=== PATIENT | female | born 1970 | race Caucasian/White ===

== ENCOUNTER 2018-09-28 08:00 | Outpatient (CLI) | payer BC, OTHER | END 2018-09-28 08:01 | disposition home or self-care (01) | LOC: LAB.WCP 08:00 | PROVIDERS: ATTEND Physician Assistant Medical | DX: E03.9 Hypothyroidism, unspecified (principal) | CPT/HCPCS: 36415; 84443 ==

== ENCOUNTER 2018-11-04 09:55 | Outpatient (CLI) | payer OTHER ==
--- NOTE | 2018-11-05 15:31 | MRI Report ---
Reason: BACK PAIN Procedure Date: 11/04/2018 Accession Number: [id number] / [id number] Procedure: MRI - Lumbar Spine W/O CPT Code: FULL RESULT: EXAM: MRI LUMBAR SPINE WITHOUT CONTRAST EXAM DATE: 11/04/2018 10:15 AM. CLINICAL HISTORY: Low back pain. History of surgery 2 years ago. COMPARISON: None. TECHNIQUE: Multiplanar, multisequence T1-weighted and fluid-sensitive sequences of the lumbar spine from T12 to S1 without contrast. Other: None. FINDINGS: Spinal Canal: The conus terminates at L1. The conus medullaris and cauda equina are unremarkable. Alignment: There is reversal of the lumbar lordosis. There is a 5 mm grade 1 retrolisthesis at L4-L5. Bone Marrow: There are 4 [id number] vertebra. There is partial sacralization of L5. The last visible disk is designated L5-S1. There is focal hypertrophy of the anterior aspect of the inferior L2 endplate with adjacent hypoplasia of the anterior aspect of the superior endplate of L3. No acute fracture. Disk Levels/Facets: T12-L1: Unremarkable. L1-L2: Unremarkable. L2-L3: There is disk desiccation and loss of disk height. Canal and foramina are patent. L3-L4: There is a broad-based posterior disk bulge with a left paracentral disk protrusion and evidence of a prior left laminotomy. The findings cause mild canal narrowing. The disk protrusion contacts and posteriorly displaces the left L4 nerve root within the neural foramen. There is mild right and moderate left foraminal narrowing. The disk protrusion extends into the neural foramen, superiorly displacing the L3 nerve root. L4-L5: There is a midline annular tear which combines with the retrolisthesis and a broad-based posterior disk bulge to cause mild canal narrowing. There is a left hemilaminectomy defect. There is moderate right and severe left foraminal narrowing. On the left facet joint osteophytes compress the L4 nerve root against the superior pedicle. L5-S1: Partial sacralization of L5. The canal and foramina are patent. Musculature: Normal. No edema or fatty atrophy. Other: The partially visualized retroperitoneum is unremarkable. IMPRESSION: 1. 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 2. 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 3. Reversal of the lumbar lordosis. 4. L3-L4: Left paracentral disk protrusion with a prior left laminotomy. Mild canal narrowing. The protrusion posteriorly displaces the left L4 nerve root in the lateral recess. There is moderate left foraminal narrowing. The disk protrusion extends into the neural foramen and superiorly displaces the L3 nerve root. 5. L4-L5: Prior left hemilaminectomy. Mild canal narrowing. Moderate right and severe left foraminal narrowing. The left L4 nerve root is compressed against the superior pedicle. Comment: The following findings are so common in adults without low back pain that while we report their presence, they must be interpreted with caution and in the context of the clinical situation. (Reference Gissellevik et al, Spine 2001) Prevalence of findings in patients without low back pain: Disk degeneration (any evidence): 92% Disk desiccation/T2 signal loss: 83% Disk height loss: 56% Disk bulge: 64% Disk protrusion: 32% Annular tear/high intensity zone: 38% RADIA
== END 2018-11-04 09:56 | disposition home or self-care (01) ==
LOC: DI 09:55
PROVIDERS: ATTEND Family Medicine
DX: M51.26 Other intervertebral disc displacement, lumbar region (principal); M51.36 Other intervertebral disc degeneration, lumbar region; M48.061 Spinal stenosis, lumbar region without neurogenic claudication
CPT/HCPCS: 72148

== ENCOUNTER 2021-09-19 12:23 | Outpatient (CLI) | payer OTHER ==
--- NOTE | 2021-09-21 12:35 | Mammography Report ---
BILATERAL DIGITAL SCREENING MAMMOGRAM 3D/2D: 09/19/2021 CLINICAL: Routine screening. Comparison is made to exam dated: 11/28/2011 mammogram - [facility]. There are scattered fibroglandular elements in both breasts. No significant masses, calcifications, or other findings are seen in either breast. There has been no significant interval change. IMPRESSION: NEGATIVE There is no mammographic evidence of malignancy. A 1 year screening mammogram is recommended. Based on the Tyrer Cuzick model (a risk assessment model) the patients lifetime risk is 8.0% and her 10 year risk is 1.8%. According to the ACR, ACS, and NCCN guidelines, an annual breast MRI exam mayco g with mammogram is recommended if the patients lifetime risk is 20% or greater. This exam was interpreted at Station ID: [id number]. NOTE: For mammograms, a report in lay terms will be sent to the patient. Approximately 15% of breast malignancies will not be visualized mammographically. In the management of a palpable breast mass, a negative mammogram must not discourage biopsy of a clinically suspicious lesion. Electronically Signed By: Favian Izaguirre acr/penrad:09/20/2021 10:50:11 ACR BI-RADS Category 1: Negative 3341F PARENCHYMAL PATTERN: (A) - The breast(s) demonstrate(s) scattered fibroglandular densities. BI-RADS CATEGORY: (1) - 1 RECOMMENDATION: (ANNUAL) - Recommend routine annual screening mammography. [id number] 1 year screening LATERALITY: (B)
== END 2021-09-19 12:24 | disposition home or self-care (01) ==
LOC: DI.N 12:23
PROVIDERS: ATTEND Internal Medicine
DX: Z12.31 Encounter for screening mammogram for malignant neoplasm of breast (principal)

== ENCOUNTER 2022-04-10 08:21 | Outpatient (CLI) | payer OTHER ==
--- NOTE | 2022-04-10 11:03 | Ultrasound Report ---
PROCEDURE: Head or Neck Soft Tissue INDICATIONS: GOITER TECHNIQUE: Real-time scanning was performed of the thyroid gland, with image documentation. COMPARISON: None FINDINGS: Right: Thyroid lobe measures 4.2 x 1.2 x 1.5 cm, and is homogeneous in echotexture. Left: Thyroid lobe measures 4.3 x 1.7 x 1.9 cm, and is homogenous in echotexture. Isthmus: 0.2 cm thick. Nodule number: One Location: Right mid Size: 1.0 x 0.8 x 0.9 cm. Composition: Solid Echogenicity: Isoechoic Shape: wider than tall. Margins: Smooth Echogenic foci: None Total points: 3 ACR TI-RADS category: Mildly suspicious Nodule number: Two Location: Left mid Size: 2.1 x 1.2 x 1.8 cm. Composition: Predominantly solid Echogenicity: Hypoechoic, but mixed echogenicity Shape: wider than tall. Margins: Smooth smooth Echogenic foci: None Total points: 4 ACR TI-RADS category: Moderately suspicious IMPRESSION: Bilateral thyroid nodules as described above. Recommend ultrasound-guided fine-needle as piration of the moderately suspicious 2.1 cm left thyroid nodule. ACR TI-RADS definitions and recommendations: TI-RADS 1 (benign): 0 points. FNA not needed. TI-RADS 2 (not suspicious): 2 points. FNA not needed. TI-RADS 3 (mildly suspicious): 3 points. "FNA if 2.5 cm or larger, follow up if 1.5 cm or larger (at 1, 3, and 5 years). TI-RADS 4 (moderately suspicious): 4-6 points. "FNA if 1.5 cm or larger, follow up if 1 cm or larger (at 1, 2, 3, and 5 years). TI-RADS 5 (highly suspicious): 7 points or more. "FNA if 1 cm or larger, follow up if 0.5 cm or larger (every year for 5 years). Reviewed by: Magdi Hernandez MD on 04/10/2022 11:02 AM PST Approved by: Magdi Hernandez MD on 04/10/2022 11:02 AM PST Station ID: [id number]
== END 2022-04-10 08:22 | disposition home or self-care (01) ==
LOC: DI 08:21
PROVIDERS: ATTEND Internal Medicine
DX: E04.2 Nontoxic multinodular goiter (principal)